=== PATIENT | male | born 1995 | race Caucasian/White ===

== ENCOUNTER 2019-06-30 00:53 | Inpatient (IN) | payer MEDICAID, OTHER ==
[~2019-06-30] VITALS: Ht 177.8 cm; Wt 86.4 kg
[2019-06-30] MEDS ORDERED: NS 1,000 ML IV ONE (01:15)
[2019-06-30 01:44] LABS: BASO # 0.1 10^3/uL (0.0-0.2); BASO % 0.4 % (0.0-1.0); EOS # 0.1 10^3/uL (0.0-0.5); EOS % 0.3 % (0.0-3.0); HEMATOCRIT 46.5 % (42.0-52.0); LYMPH # 1.1 10^3/uL (1.5-5.0); LYMPH % 4.4 % (24.0-44.0); MEAN CORPUSCULAR HEMOGLOBIN 29.7 pg (27.0-33.0); MEAN CORPUSCULAR HGB CONC 32.3 g/dl (32.0-36.5); MEAN CORPUSCULAR VOLUME 92.1 fl (80.0-96.0); MONO # 0.5 10^3/uL (0.0-0.8); MONO % 2.1 % (0.0-5.0); NEUTROPHILS # 22.7 10^3/uL (1.5-8.5); NEUTROPHILS % 91.1 % (36.0-66.0); PLATELET COUNT, AUTOMATED 195 10^3/uL (150-450); RED BLOOD COUNT 5.05 10^6/uL (4.30-6.10); WHITE BLOOD COUNT 24.9 10^3/uL (4.0-10.0)
--- NOTE | 2019-06-30 01:53 | REP ---
Clinical: Altered mental status . Comparison: None . Findings: The mediastinum and cardiac silhouette are stable and within normal limits for portable technique. Subtle air space disease involving the left hemithorax cannot be excluded and should be correlated with auscultation and physical examination. No discrete focal consolidation. No effusion. No pneumothorax. Impression: Subtle left-sided air space disease cannot be excluded. Electronically Signed by Arnaud Todd MD 06/30/2019 01:44 A
[2019-06-30 02:32] LABS: ACETAMINOPHEN LEVEL < 2.0 UG/ML (10.0-30.0); ALT/SGPT 43 U/L (12-78); BILIRUBIN,DIRECT 0.1 MG/DL (0.0-0.2); BILIRUBIN,TOTAL 0.2 MG/DL (0.2-1.0); BLOOD UREA NITROGEN 20 MG/DL (7-18); CALCIUM LEVEL 8.5 MG/DL (8.5-10.1); CARBON DIOXIDE LEVEL 28 MEQ/L (21-32); CHLORIDE LEVEL 104 MEQ/L (98-107); CK-MB VALUE MASS 2.3 NG/ML (<3.6); CPK CREATINE PHOSPHOKINASE 515 U/L (39-308); CREATININE FOR GFR 1.42 MG/DL (0.70-1.30); ETHYL ALCOHOL (ETHANOL) < 0.003 % (0.000-0.010); GLOMERULAR FILTRATION RATE > 60.0 (>60); GLUCOSE, FASTING 223 MG/DL (70-100); MB/CK RELATIVE INDEX 0.45 (< OR =4); POTASSIUM SERUM 5.4 MEQ/L (3.5-5.1); SALICYLATE LEVEL 2.4 MG/DL (5.0-30.0); SODIUM LEVEL 139 MEQ/L (136-145); TOTAL PROTEIN 7.3 GM/DL (6.4-8.2); TROPONIN I 0.03 NG/ML (< 0.10)
[2019-06-30 02:32] LABS: AMPHETAMINES LEVEL URINE NEGATIVE (NEGATIVE); BARBITURATES URINE NEGATIVE (NEGATIVE); BENZODIAZEPINES URINE NEGATIVE (NEGATIVE); CANNABINOIDS URINE POSITIVE (NEGATIVE); COCAINE METABOLITE URINE NEGATIVE (NEGATIVE); METHADONE URINE NEGATIVE (NEGATIVE); OPIATES URINE POSITIVE (NEGATIVE); PHENCYCLIDINE URINE NEGATIVE (NEGATIVE)
[2019-06-30] MEDS ORDERED: ISOVUE-370 76% 100ML VIAL (Q9967) As Ordered ONE (05:25)
[2019-06-30] MEDS ORDERED: cefTRIAXone SOD 1 GM in D5W MINI-BAG PLUS 50 ML IV ONE (07:00)
[2019-06-30] MEDS ORDERED: PIPERACILLIN/TAZOBACTAM SOD 3.375 GM in D5W MINI-BAG PLUS 50 ML IV SCH (08:00)
[2019-06-30 08:54] VITALS: BP 123/62
[2019-06-30] MEDS ORDERED: PANTOPRAZOLE 40MG TAB (PROTONIX) PO SCH (09:00)
--- NOTE | 2019-06-30 09:04 | REP ---
CT pulmonary angiogram: With IV contrast. History: Hypoxia. Post CPR for opioid overdose. Repeat dictation. Preliminary report is provided at the time of exam by [facility]. Comparison studies: Comparison is made with portable chest x-ray from the same date. Contrast dose: 75 mL of Isovue [address] technique: Helical scanning is acquired and overlapping 1.5 mm and contiguous 3 mm axial images are reformatted. In addition, maximum intensity projection and multiplanar re-formation images are generated in sagittal and coronal imaging projections. CT pulmonary angiographic findings: There is good opacification of the pulmonary arterial tree and there is no CT evidence of pulmonary embolism. The thoracic aorta is normal in coarse, caliber, and homogeneous in contrast enhancement. There is no evidence of pleural or pericardial effusion. No pneumothorax or hydrothorax is seen. There are multifocal alveolar infiltrates in the left upper lobe and left lower lobe. A few increased markings are seen in the right lower lobe. This may reflect pneumonia or aspiration. Visualized upper abdominal structures are unremarkable. No rib or other fracture is visible. Impression: Left upper lobe and lower lobe infiltrates consistent with pneumonia versus aspiration. No fracture is seen. No evidence of pneumothorax or hydrothorax. No evidence of pulmonary embolus. Electronically Signed by Drew Cardoza MD 06/30/2019 06:33 P
[2019-06-30 10:00] VITALS: BP 112/58
[2019-06-30] MEDS ORDERED: CEFD1CAP8 PO (11:59)
[2019-06-30] MEDS ORDERED: FLAG500T PO (11:59)
--- NOTE | 2019-06-30 12:10 | HPEPDOC ---
General Date of Admission Jun 30, 2019 at 07:57 Date of Service: Jun 30, 2019 Chief Complaint The patient is a 23-year-old male admitted with a reason for visit of Aspiration Pneumonia. Source: Patient, RN/, Old records History of Present Illness 23 year old male with h/o polysubstance abuse who had recreational overdose with Iv heroin in his motel room. Someone called the PD he was started on CPD and received IM narcan by PD and CPR in field for 15 mins. By the time EMS arrived there was already a pulse. When he was brought to the ED he was alert , awake and breathing on his own however was hypoxic. C The [facility] SW spoke with the patient in ED and he denied any suicidal ideas and denied that this was a suicidal attemp. He says that he was clean for a year and just used it yesterday. Poison control was consulted from ED and advised observation for 4 h ours. XR followed by CT chest showed Left and right infiltrates concerning for aspiration and aspiration pneumonia. Hospitalist was consulted for admission. Home Medications Scheduled Cefdinir (Cefdinir) 300 Mg Capsule, 1 CAP PO BID Metronidazole (Flagyl) 500 Mg Tablet, 1 TAB PO BID Allergies Coded Allergies: Penicillins (Verified Allergy, Unknown, 06/30/19) Past Medical History Medical History Polysubstance abuse Hepatitis C Family History Significant Family History: No pertinent family hx discussed with patient Social History * Smoker: current smoker Drugs: heroin, marijuana A-FIB/CHADSVASC A-FIB History Current/History of A-Fib/PAF?: No Review of Systems Constitutional: Denies: Chills, Fever, Night Sweats Eyes: Denies: Pain, Vision change ENT: Denies: Head Aches, Ear Pain, Dysphagia Skin: Denies: Rash, Lesions, Breakdown Pulmonary: Denies: Dyspnea, Cough Cardiovascular: Denies: Chest Pain, Palpitations, Orthopnea, Paroxysmal Noc. Dyspnea, Lt Headedness Gastrointestinal: Denies: Nausea, Vomiting, Abdominal Pain, Diarrhea Genitourinary: Denies: Dysuria, Frequency, Incontinence, Retention Hematologic: Denies: Bruising, Bleeding Excessively Musculoskeletal: Denies: Neck Pain, Back Pain, Joint Pain, Muscle Pain, Spasms Physical Examination General Exam: Positive: Alert, Cooperative, No Acute Distress Eye Exam: Positive: PERRLA, Conjunctiva & lids normal, EOMI; Negative: Sclera icteric ENT Exam: Positive: Atraumatic, Mucous membr. moist/pink, Pharynx Normal Neck Exam: Positive: Supple; Negative: JVD, thyromegaly Chest Exam: Positive: Normal air movement, Other (few scatter crackles) Heart Exam: Positive: Rate Normal, Regular Rhythm, Normal S1, Normal S2; Negative: Murmurs, Rubs Telemetry: Positive: No significant arrhythmia Abdomen Exam: Positive: Normal bowel sounds, Soft; Negative: Tenderness, Hepatospenomegaly Extremity Exam: Positive: Normal pulses; Negative: Clubbing, Cyanosis, Edema Skin Exam: Positive: Nl turgor and temperature; Negative: Breakdown, Lesion Neuro Exam: Positive: Normal Gait, Normal Speech, Cranial Nerves 3-12 NL, Reflexes 2+ Vital Signs Vital Signs Date Time Temp Pulse Resp B/P (MAP) Pulse Ox O2 Delivery O2 Flow Rate FiO2 06/30/19 10:00 62 112/58 (76) 94 Room Air 06/30/19 08:54 99.2 14 06/30/19 06:30 1.0 Laboratory Data Labs 24H Laboratory Tests 2 06/30/19 01:30: Immature Granulocyte % (Auto) 1.7, Neutrophils (%) (Auto) 91.1H, Lymphocytes (%) (Auto) 4.4L, Monocytes (%) (Auto) 2.1, Eosinophils (%) (Auto) 0.3, Basophils (%) (Auto) 0.4, Neutrophils # (Auto) 22.7H, Lymphocytes # (Auto) 1.1L, Monocytes # (Auto) 0.5, Eosinophils # (Auto) 0.1, Basophils # (Auto) 0.1, Nucleated Red Blood Cells % (auto) 0.0, POC Glucose (Misc Panel) 231H, POC Sodium (Misc Panel) 139, POC Potassium (Misc Panel) 5.4H, POC Chloride (Misc Panel) 100, POC Total CO2 (Misc Panel) 27.0, POC Blood Urea Nitrogen (Misc Panel 22, POC Ionized Calcium (Misc Panel) 4.8, POC Creatinine (Misc Panel) 1.3, POC Hematocrit (Misc Panel) 46.0, Anion Gap 7L, Glomerular Filtration Rate > 60.0, Lactic Acid Level 4.9*H, Calcium Level 8.5, Total Bilirubin 0.2, Direct Bilirubin 0.1, Aspartate Amino Transf (AST/SGOT) 72H, Alanine Aminotransferase (ALT/SGPT) 43, Alkaline Phosphatase 84, Total Creatine Kinase 515H, Creatine Kinase MB 2.3, Creatine Kinase MB Relative Index 0.45, Troponin I 0.03, Total Protein 7.3, Albumin 4.0, Albumin/Globulin Ratio 1.21, Thyroid Stimulating Hormone (TSH) 2.100, Salicylates Level 2.4L, Acetaminophen Level < 2.0L, Ethyl Alcohol Level < 0.003 06/30/19 01:46: POC Total CO2 (Misc Panel) 29.0H, POC pH (Misc Panel) 7.315L, POC Base Excess (Misc Panel) 1.0, POC Saturated Percent O2 (Misc) 62L, POC pO2 (Misc Panel) 35.0*L, POC pCO2 (Misc Panel) 53.0H, POC HCO3 (Misc Panel) 27.0H 06/30/19 01:51: Urine Opiates Screen POSITIVEH, Urine Methadone Screen NEGATIVE, Urine Barbiturates Screen NEGATIVE, Urine Phencyclidine Screen NEGATIVE, Urine Amphetamines Screen NEGATIVE, Urine Benzodiazepines Screen NEGATIVE, Urine Cocaine Metabolite Screen NEGATIVE, Urine Cannabinoids Screen POSITIVEH CBC/BMP Laboratory Tests 06/30/19 01:30 Assessment/Plan 23 year old male with h/o polysubstance abuse who had recreational overdose with Iv heroin in his motel room. Someone called the PD he was started on CPD and received IM narcan by PD and CPR in field for 15 mins. By the time EMS arrived there was already a pulse. When he was brought to the ED he was alert , awake and breathing on his own however was hypoxic. C The behaviour health SW spoke with the patient in ED and he denied any suicidal ideas and denied that this was a suicidal attemp. He says that he was clean for a year and just used it yesterday. Poison control was consulted from ED and advised observation for 4 hours. XR followed by CT chest showed Left and right infiltrates concerning for aspiration and aspiration pneumonia. Hospitalist was consulted for admission. Aspiration pneumonia will give Zosyn Recreational OD with IV heroin follow up with [facility]. says has an appointment with them Hepatitis C says was treated. Plan / VTE VTE Prophylaxis Ordered?: Yes POWER ALFREDO MD Jun 30, 2019 12:10
--- NOTE | 2019-06-30 20:25 | ECGEPIP ---
[facility] - ED Test Date: 2019-06-30 Pat Name: SUE PRADO JR Department: Room: - Gender: Male Slot Attendant: er : [phone] Requested By: SHAZIA Berger Order Number: [id number] Reading MD: Yeimy Ayala Measurements Intervals [place] Rate: 114 P: 36 MA: 132 QRS: 96 QRSD: 102 T: 32 QT: 321 QTc: 443 Interpretive Statements SINUS TACHYCARDIA BORDERLINE RIGHT AXIS DEVIATION INCOMPLETE RIGHT BUNDLE BRANCH BLOCK ABNORMAL RHYTHM ECG NO PRIOR Electronically Signed on 06-30-2019 20:25:14 EST by Yeimy Ayala
== END 2019-06-30 12:21 | disposition left against medical advice (07) | DRG 816 ==
LOC: M ED 00:53 → EDBD 00:53 → M ED INP 07:57 → ENRESERVTM 08:20 → ENRESERVDT 08:20 → M ICU 08:43
PROVIDERS: ADMIT Internal Medicine Nephrology; ATTEND Internal Medicine Nephrology
DX: T40.1X1A Poisoning by heroin, accidental (unintentional), initial encounter (principal); J69.0 Pneumonitis due to inhalation of food and vomit; Z79.899 Other long term (current) drug therapy; Z88.0 Allergy status to penicillin

== ENCOUNTER → 2020-03-11 | Outpatient (REF) | payer MEDICAID ==
[~2020-03-11] MED LIST: CEFD1CAP8 PO; FLAG500T PO
== END ==
LOC: M LAB REF 15:52
PROVIDERS: ATTEND Surgery
DX: U07.1 COVID-19 (principal)

== ENCOUNTER → 2020-09-25 | Outpatient (REF) | payer OTHER | LOC: M LAB REF 10:56 | PROVIDERS: ATTEND Surgery | DX: U07.1 COVID-19 (principal) ==